=== PATIENT | female | born 1975 | race Hispanic/Latino ===

== ENCOUNTER → 2024-08-05 | Day surgery (SDC) | payer OTHER ==
[~2024-08-05] MED LIST: BENICAR5 MG PO; CRESTOR40 MG PO; FOLIC ACID0.4 MG PO; KETAMINE HCL INJ 50 MG/ML 10 ML VIAL ONE; LEVOTHYROXINE50 MCG PO; LIDOCAINE HCL 2% LOCAL INJ 5 ML SDV VIAL INJ ONE; PROPOFOL IV EMULSION 10 MG/ML 20 ML VIAL ONE; VIT D2 PO
[2024-08-05] MEDS: LACTATED RINGER'S 1,000 ML ONE (15:01)
[2024-08-05 17:12] VITALS: TEMP 97.2
[2024-08-05 17:40] VITALS: BP 136/89; PULSE 76; RESP 16; O2SAT 99
== END | disposition home or self-care (01) ==
LOC: OR 14:26
PROVIDERS: ATTEND Internal Medicine Gastroenterology
DX: Z12.11 Encounter for screening for malignant neoplasm of colon (principal); D12.5 Benign neoplasm of sigmoid colon; K64.8 Other hemorrhoids; R14.0 Abdominal distension (gaseous); Z71.3 Dietary counseling and surveillance; I10 Essential (primary) hypertension; E78.5 Hyperlipidemia, unspecified; E03.9 Hypothyroidism, unspecified; E55.9 Vitamin D deficiency, unspecified; R74.8 Abnormal levels of other serum enzymes; K80.20 Calculus of gallbladder without cholecystitis without obstruction; R68.84 Jaw pain; Z01.810 Encounter for preprocedural cardiovascular examination; Z79.899 Other long term (current) drug therapy; Z68.32 Body mass index [BMI] 32.0-32.9, adult; Z80.0 Family history of malignant neoplasm of digestive organs
CPT/HCPCS: 45385; 81025; 93005; J2003; J2704; J7121

== ENCOUNTER → 2024-09-19 | Day surgery (SDC) | payer OTHER ==
[2024-09-15 09:33] LABS: BASOPHILS % 0.3 % (0.0-1.0); EOSINOPHILS # (AUTO) 0.1 (0.0-0.4); EOSINOPHILS % 0.9 % (0.0-6.0); HEMATOCRIT 34.8 % (34.2-44.1); LYMPHOCYTES # (AUTO) 2.2 (1.0-3.2); LYMPHOCYTES % 31.9 % (18.0-39.1); MEAN CORPUSCULAR HEMOGLOBIN 22.1 pg (28-32); MEAN CORPUSCULAR HGB CONC 28.7 g/dL (31-35); MEAN CORPUSCULAR VOLUME 76.8 fL (81-99); MONOCYTES # (AUTO) 0.8 (0.2-0.8); MONOCYTES % 11.2 % (4.4-11.3); NEUTROPHILS # (AUTO) 3.8 (2.1-6.9); NEUTROPHILS % 55.4 % (38.7-80.0); PLATELET COUNT 302 x10e3/uL (140-360); RED BLOOD COUNT 4.53 x10e6/uL (3.6-5.1); RED CELL DISTRIBUTION WIDTH 15.7 % (11.7-14.4); WHITE BLOOD COUNT 6.78 x10e3/uL (4.8-10.8)
[2024-09-15 10:01] LABS: ALBUMIN 3.7 g/dL (3.5-5.0); ALBUMIN/GLOBULIN RATIO 1.1 (0.8-2.0); ANION GAP 11.1 mmol/L (8-16); BILIRUBIN,TOTAL 0.5 mg/dL (0.2-1.2); CALCIUM 9.9 mg/dL (8.4-10.2); CREATININE, SERUM 0.64 mg/dL (0.57-1.11); POTASSIUM 4.1 mmol/L (3.5-5.1); TOTAL PROTEIN 7.1 g/dL (6.5-8.1)
[~2024-09-19] MED LIST changes: +ACETAMINOPHEN 1000 MG/100 ML 100 ML IV ONE; +DEXAMETHASONE SOD PHOS INJ 4 MG/ML SDV ONE; +DEXMEDETOMIDINE HCL 2 ML ONE; +FAMOTIDINE 20 MG/2 ML VIAL IV ONE; +FENTANYL CITRATE/PF 100MCG/2 ML INJ ONE; -KETAMINE HCL INJ 50 MG/ML 10 ML VIAL ONE; +MIDAZOLAM HCL 2 MG/2 ML VIAL ONE; +ONDANSETRON HCL INJ 2MG/ML 2ML 2 MG/ML VIAL ONE; +ROCURONIUM BROMIDE 1 ML IV ONE; +SODIUM CHLORIDE 0.9% 100 ML ONE; +SUGAMMADEX SODIUM 200 MG/2 ML VIAL IV ONE
[2024-09-19] MEDS: LACTATED RINGER'S 1,000 ML ONE (07:37)
[2024-09-19 10:13] VITALS: TEMP 97.6
[2024-09-19] MEDS: HYDROCODONE/APAP 5MG-325MG TAB ONE (11:10)
[2024-09-19] MEDS: ONDANSETRON HCL INJ 2MG/ML 2ML 2 MG/ML VIAL ONE (11:15)
[2024-09-19 11:35] VITALS: BP 145/90; PULSE 85; RESP 16; O2SAT 98
== END | disposition home or self-care (01) ==
LOC: OR 07:10
PROVIDERS: ATTEND Surgery
DX: K80.10 Calculus of gallbladder with chronic cholecystitis without obstruction (principal); K82.8 Other specified diseases of gallbladder; I10 Essential (primary) hypertension; E78.5 Hyperlipidemia, unspecified; E03.9 Hypothyroidism, unspecified; N20.0 Calculus of kidney; Z01.812 Encounter for preprocedural laboratory examination; Z79.899 Other long term (current) drug therapy
CPT/HCPCS: 36415; 47562; 80053; 81025; 85025; 88304; C1766; J0131; J1100; J2003; J2250; J2405; J2704; J3010; J7050; J7121